=== PATIENT | female | born 2000 | race Two or more races ===

== ENCOUNTER 2023-01-27 16:52 | Emergency (ER) | payer OTHER, MEDICAID ==
[~2023-01-27] VITALS: Ht 160 cm; Wt 100.0 kg
[2023-01-27 18:08] LABS: Basophils # (auto) 0.1 10 ^3/uL (0-0.2); Basophils % (auto) 0.8 % (0.0-2.0); Eosinophils # (auto) 0.3 10 ^3/uL (0-0.8); Eosinophils % (auto) 4.2 % (0.0-7.0); Hematocrit 39.4 % (36.0-46.0); Hemoglobin 13.2 g/dL (12.2-16.2); Lymphocytes # (auto) 1.5 10 ^3/uL (0.4-5.4); Lymphocytes % (auto) 18.2 % (10.0-50.0); Mean Corpuscular Hemoglobin 29.3 pg (28.0-32.0); Mean Corpuscular Hgb Conc. 33.5 g/dL (32.0-36.0); Mean Corpuscular Volume 87.4 fL (80.0-100.0); Monocytes # (auto) 0.6 10 ^3/uL (0-1.3); Monocytes % (auto) 7.8 % (0.0-12.0); Neutrophils # (auto) 5.5 10 ^3/uL (1.6-8.6); Nucleated Red Blood Cells % 0.1 %; Red Blood Cells 4.51 10^6/uL (4.0-5.20); Red Cell Distribution Width 12.8 % (11.8-14.3)
[2023-01-27 18:12] LABS: Albumin 3.8 g/dL (3.4-5.0); BUN/Creatinine Ratio 18.6; Calcium 9.3 mg/dL (8.5-10.1); Potassium 4.1 mmol/L (3.5-5.1)
[2023-01-27 18:15] LABS: Bilirubin, Total 0.2 mg/dL (0.2-1.0)
[2023-01-27] MEDS ORDERED: IBUP800T26 PO (21:21)
[2023-01-27 21:37] VITALS: BP 109/65
== END 2023-01-27 21:39 | disposition home or self-care (01) ==
LOC: ER 16:52
DX: M94.0 Chondrocostal junction syndrome [Tietze] (principal)
CPT/HCPCS: 36415; 71045; 80053; 84484; 85025; 93005

== ENCOUNTER 2023-11-20 14:29 | Emergency (ER) | payer OTHER, MEDICAID ==
[~2023-11-20] VITALS: Ht 162.6 cm; Wt 96.8 kg
[~2023-11-20 14:29] MED LIST: IBUP-1455 PO
[2023-11-20] MEDS ORDERED: IBUPROFEN 800 MG TAB PO ONE (14:45)
[2023-11-20 15:17] LABS: Basophils # (auto) 0 10 ^3/uL (0-0.2); Basophils % (auto) 0.2 % (0.0-2.0); Eosinophils # (auto) 0 10 ^3/uL (0-0.8); Hematocrit 40.7 % (36.0-46.0); Hemoglobin 13.4 g/dL (12.2-16.2); Lymphocytes # (auto) 0.9 10 ^3/uL (0.4-5.4); Lymphocytes % (auto) 8.3 % (10.0-50.0); Mean Corpuscular Hemoglobin 29.2 pg (28.0-32.0); Mean Corpuscular Hgb Conc. 32.8 g/dL (32.0-36.0); Mean Corpuscular Volume 89.1 fL (80.0-100.0); Monocytes # (auto) 1.2 10 ^3/uL (0-1.3); Monocytes % (auto) 10.9 % (0.0-12.0); Neutrophils # (auto) 9.2 10 ^3/uL (1.6-8.6); Neutrophils % (auto) 80.6 % (37.0-80.0); Red Blood Cells 4.57 10^6/uL (4.0-5.20); Red Cell Distribution Width 13.1 % (11.8-14.3); White Blood Cell 11.4 10^3/uL (4.4-10.8)
[2023-11-20 15:40] LABS: Chloride 101 mmol/L (98-107); Potassium 3.8 mmol/L (3.5-5.1); Sodium 135 mmol/L (136-145)
[2023-11-20 15:41] LABS: Anion Gap 8 (5-15); Calcium 9.7 mg/dL (8.5-10.1); Carbon Dioxide 26 mmol/L (20-30)
[2023-11-20 15:46] LABS: BUN/Creatinine Ratio 8.3 (10.0-20.0); Blood Urea Nitrogen 8 mg/dL (9-23); Glucose 93 mg/dL (74-106)
[2023-11-20 16:14] LABS: Urine Bacteria MOD /hpf (None Seen); Urine Blood 3+ /uL (Negative); Urine Clarity HAZY (Clear); Urine Mucus FEW (None Seen); Urine Protein, UAD 2+ (Negative); Urine Specific Gravity 1.018 (1.001-1.035); Urine Urobilinogen Normal (Negative); Urine WBC 24 /hpf (0 - 5); Urine pH 6.5 (5.0-8.0)
[2023-11-20 16:16] LABS: Urine Color RED (Yellow)
[2023-11-20] MEDS ORDERED: cefTRIAXone SOD 1,000 MG VL IM ONE ×2 (17:00→17:30)
[2023-11-20] MEDS ORDERED: AMOX875T4 PO (17:03)
[2023-11-20] MEDS ORDERED: IBUP-1455 PO (17:03)
[2023-11-20 17:26] VITALS: BP 105/63; PULSE 88; RESP 18; TEMP 98.2; O2SAT 97
== END 2023-11-20 17:36 | disposition home or self-care (01) ==
LOC: ER 14:29
DX: J02.9 Acute pharyngitis, unspecified (principal)
CPT/HCPCS: 36415; 80048; 81001; 85025; 96372; 99283; J0696

== ENCOUNTER 2025-11-05 12:03 | Observation (INO) | payer MEDICAID, OTHER ==
[~2025-11-05 12:03] MED LIST changes: +AMOX875T4 PO
[2025-11-05] MEDS ORDERED: PREN-96 PO (13:30)
--- NOTE | 2025-11-05 14:22 | DVH ---
Ob ultrasound HISTORY: Decreased movement, no PNC. TECHNIQUE: Real-time ultrasound was performed with sagittal and axial images submitted for evaluation. HISTORY BY DATES: 27 weeks FINDINGS: Single intrauterine fetus cephalic presentation with heart rate of 156 beats per minute. Grade 1 posterior placenta. No previa or abruption Cervical length 4 cm. Cervix closed. Amniotic fluid index 13.6 cm. Measurement of partial an average gestational age of 28 weeks 4 days IMPRESSION: 1. Single living 27-28 week size IUP
--- NOTE | 2025-11-05 14:35 | DVHDS2 ---
Physician Discharge Progress N Final Diagnosis: oct movement 27wks Operations or Procedures: Operations or Procedures nst,sono Condition on Discharge: Good Disposition: Home Discharge Instructions: Diet: Regular Activity: No Restrictions, As Tolerated Medications: na Follow Up Care: Specialist: 2d Discharge Statement: "Patient was advised to return to the ER or call 911 if any headaches, dizziness, shortness of breath, chest pain, abdominal pain, bleeding, fevers, or worsening of medical condition. Patient was counseled about treatment plan, medications, possible side effects, patientverbalized understanding. All questions were answered to the best of my ability. This discharge took greater then 30 minutes in planning, reviewing documentatio n, counseling the patient, and discussing with other team members." Visit Coding OBGYN Date of Service: Nov 05, 2025 Billing Provider: SHIRLEY GAVIRIA DO CASE PICKER Common Visit Codes: [id number] OBS CARE (HIGH) CASE PICKER Procedure Codes: 67897-63- NON-STRESS TEST SHIRLEY GAVIRIA DO Nov 05, 2025 14:35
== END 2025-11-05 14:31 | disposition home or self-care (01) ==
LOC: LDRP 12:03 → UNDOADMOB 12:03 → LDRP 12:10 → UNDODISOB 14:31
PROVIDERS: ADMIT Obstetrics & Gynecology; ATTEND Obstetrics & Gynecology
DX: O36.8120 Decreased fetal movements, second trimester, not applicable or unspecified (principal); Z3A.27 27 weeks gestation of pregnancy; Z98.890 Other specified postprocedural states
CPT/HCPCS: 76805; 76817; 81002; 94760; A4649; G0378